=== PATIENT | male | born 1965 | race African-American/Black ===

== ENCOUNTER 2020-06-29 02:44 | Observation (INO) | payer OTHER ==
[2020-06-29] MEDS ORDERED: Boostrix 0.5 ML VIAL ONE ×2 (02:54→02:59)
[2020-06-29] MEDS ORDERED: Tranexamic Acid 1,000 MG/10 ML VIAL ONE ×2 (02:54→04:02)
[2020-06-29] MEDS ORDERED: CEFAZOLIN 1 GM VIAL ONE (02:54)
[2020-06-29 02:58] LABS: #Basophils 0.1 thou/uL (0.0-0.2); #Eosinphils 0.4 thou/uL (0.0-0.7); #Lymphocytes 3.2 thou/uL (1.20-3.40); #Monocytes 0.8 thou/uL (0.11-0.59); #Neutrophils 2.4 thou/uL (1.40-6.50); %Basophils 1.7 % (0.0-1.0); %Eosinophils 5.5 % (0.0-10.0); %Lymphocytes 46.2 % (21.0-51.0); %Monocytes 11.7 % (0.0-10.0); %Neutrophils 34.9 % (42.0-75.0); Hemoglobin 14.9 g/dL (14.0-18.0); Mean Corpuscular HGB CONC 34.3 g/dL (32.0-36.0); Mean Corpuscular Hemoglobin 29.5 pg (27.0-31.0); Mean Platelet Volume 8.1 fL (7.4-10.4); Platelet Count 187 thou/uL (130-400); RBC Distribution Width 12.3 % (11.5-14.5); Red Blood Cell (RBC) Count 5.06 mill/uL (4.70-6.10); White Blood Cell (WBC) Count 6.9 thou/uL (4.8-10.8)
[2020-06-29 03:05] LABS: PTT 23.1 sec (22.9-36.1); Prothrombin Time 13.2 sec (12.0-14.7)
[2020-06-29] MEDS ORDERED: Lidocaine 1% w/Epinephrine 1:100K 20 ML VIAL ONE ×2 (03:17→13:56)
[2020-06-29 03:21] LABS: ALT (SGPT) 19 U/L (8-55); AST (SGOT) 23 U/L (5-34); Albumin 4.1 g/dL (3.5-5.0); Alkaline Phosphatase 88 U/L (40-110); Anion Gap 13 mmol/L (10-20); BUN (Urea Nitrogen) 14 mg/dL (8.4-25.7); Bilirubin, Total 0.5 mg/dL (0.2-1.2); Calc. Creatinine Clearance 0 mL/min (70-130); Calcium 8.9 mg/dL (7.8-10.44); Carbon Dioxide 24 mmol/L (22-29); Chloride 105 mmol/L (98-107); Estimated GFR-MDRD 81; Globulin 3.5 g/dL (2.4-3.5); Glucose 103 mg/dL (70-105); Potassium 3.6 mmol/L (3.5-5.1); Protein, Total 7.6 g/dL (6.0-8.3); Sodium 138 mmol/L (136-145)
[2020-06-29] MEDS ORDERED: Dextrose 5% in Water 1,000 ML IV PRN (06:34)
[2020-06-29] MEDS ORDERED: Dextrose 50% Abboject 50 ML SYRINGE SLOW IVP PRN (06:34)
[2020-06-29] MEDS ORDERED: Morphine 2 MG/ML VIAL SLOW IVP PRN (06:34)
[2020-06-29] MEDS ORDERED: traMADol HCl 50 MG TAB PO PRN ×2 (06:37)
[2020-06-29] MEDS ORDERED: Sodium Chloride 0.9% 1,000 ML IV SCH (06:45)
[2020-06-29] MEDS ORDERED: Ondansetron PF 4 MG/2 ML Vial IVP PRN (06:45)
[2020-06-29] MEDS ORDERED: Ondansetron ODT 4 MG TAB SL PRN (06:45)
[2020-06-29] MEDS ORDERED: HYDROcodone/Acetaminophen 5/325 mg Tablet PO PRN ×2 (06:45)
[2020-06-29] MEDS ORDERED: Acetaminophen 325 MG TAB PO PRN (06:45)
[2020-06-29 06:51] VITALS: BMI 29.7
[2020-06-29] MEDS ORDERED: FLU VACC QS2020-21(6MOS UP)/PF 60 MCG/0.5 ML SYRINGE IM ONE (07:45)
[2020-06-29 07:57] LABS: Magnesium 1.8 mg/dL (1.6-2.6); Phosphorus 3.1 mg/dL (2.3-4.7)
[2020-06-29] MEDS: Acetaminophen 500 MG TAB PO SCH ×2 (08:07→14:40)
--- NOTE | 2020-06-29 08:09 | RAD ---
RADIOGRAPH LEFT SHOULDER 3VIEWS: DATE: 06/29/2020 HISTORY: 54-year-old male with acute, traumatic left shoulder pain FINDINGS: There is no dislocation. No fracture is identified. IMPRESSION: No fracture.
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
[2020-06-29] MEDS ORDERED: Senokot S 8.6-50 MG TAB PO SCH (09:00)
[2020-06-29] MEDS ORDERED: Polyethylene Glycol 3350 17 GM Packet PO SCH (09:00)
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
[2020-06-29 12:43] VITALS: BP 143/80; TEMP 97.8
[2020-06-29] MEDS ORDERED: Lidocaine 1% w/Epinephrine 1:100K 20 ML VIAL FS SCH (14:00)
[2020-06-29 18:37] LABS: SARS-CoV-2 MS2 Positive; SARS-CoV-2 N Gene Positive; SARS-CoV-2 S Gene Negative; SARS-CoV-2 by NAA Indeterminate (NotDetected); SARS-CoV-2 orf1ab Negative
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
== END 2020-06-29 16:34 | disposition home or self-care (01) ==
LOC: ERS 02:44 → SURG A 06:42
PROVIDERS: ADMIT Specialist; ATTEND Specialist
PROC: 0JQG0ZZ Repair Right Lower Arm Subcutaneous Tissue and Fascia, Open Approach (ICD-10-PCS; principal; 2020-06-29)
DX: S50.11XA Contusion of right forearm, initial encounter (principal); S51.811A Laceration without foreign body of right forearm, initial encounter; S41.012A Laceration without foreign body of left shoulder, initial encounter; I10 Essential (primary) hypertension; E78.5 Hyperlipidemia, unspecified; E78.00 Pure hypercholesterolemia, unspecified; F17.200 Nicotine dependence, unspecified, uncomplicated; G89.11 Acute pain due to trauma; Z79.899 Other long term (current) drug therapy; Z90.79 Acquired absence of other genital organ(s); Z20.828 Contact with and (suspected) exposure to other viral communicable diseases; X99.1XXA Assault by knife, initial encounter
CPT/HCPCS: 12001; 36415; 80053; 83605; 83735; 84100; 85025; 85610; 85730; 86850; 86900; 86901; 87635; 90471; 90715; 96374; 96375; G0378; G0390; J0690; J2270; J7030; U0003